=== PATIENT | female | born 1980 | race Caucasian/White ===

== ENCOUNTER 2017-06-03 18:44 | Inpatient (IN) | payer OTHER ==
[~2017-06-03] VITALS: Ht 152.4 cm; Wt 82.1 kg
--- NOTE | ~2017-06-03 | EKG ---
[place] [address] [facility] [place] [address] ELECTROCARDIOGRAM REPORT Name: ARTLARISSA Room #: 422-P ADM IN M.R.#: [id number] Admission: 06/03/17 Attend Phys: Ramon Gallegos MD Discharge: Date of : 78 Report #: [id number] THIS REPORT FOR: //name// [facility] ED Test Date: 2017-06-03 Test Time: 18:47:25 Pat Name: ALINE CORDOVA Department: Patient ID: SJOMO- Room: Gender: F Manager Fine: [facility] : 1980 Requested By: Jeanne Haywood Order Number: [id number] MD: Andrew Rivero Measurements Intervals [place] Rate: 109 P: 40 W[place]: 153 QRS: 5 QRSD: 87 T: 18 QT: 386 QTc: 520 Interpretive Statements Sinus tachycardia Borderline T abnormalities, anterior leads Prolonged QT interval Compared to ECG 04/23/2017 12:19:37 T-wave abnormality now present septal Q waves no longer present Electronically Signed On 06-04-2017 12:17:30 CDT by Andrew Rivero [email or web address] <ELECTRONICALLY SIGNED> By: Andrew Rivero MD, [facility] 04/1216 46 46 Andrew Rivero MD, [facility] /EPI
[2017-06-03 19:15] LABS: HEMATOCRIT 43.1 % (37.0-47.0); HEMOGLOBIN 14.3 gm/dL (12.0-15.0); MCH 29.2 pg (26.0-34.0); MCHC 33.3 g/dL (28.0-37.0); MCV 87.9 fL (80.0-100.0); PLATELET COUNT 290 thou/uL (150-400); RBC 4.91 mil/uL (4.20-5.00); RDW 12.9 % (10.5-14.5); WBC 26.2 thou/uL (4.0-11.0)
[2017-06-03 19:19] LABS: ANION GAP 8 mmol/L (7-16); BUN 15 mg/dL (7-18); CALCIUM 9.3 mg/dL (8.5-10.1); CHLORIDE 99 mmol/L (98-107); CO2 29 mmol/L (21-32); CREATININE 0.8 mg/dL (0.6-1.0); GLUCOSE 98 mg/dL (74-106); POTASSIUM 3.3 mmol/L (3.5-5.1); SODIUM 136 mmol/L (136-145)
[2017-06-03 19:28] LABS: TROPONIN-I < 0.04 ng/mL (<0.06)
[2017-06-03 19:45] LABS: ABSOLUTE NEUTROPHILS 24.4 thou/uL (1.4-8.2)
[2017-06-03 20:48] LABS: URINE BILIRUBIN NEGATIVE (Negative); URINE BLOOD NEGATIVE (Negative); URINE CLARITY CLEAR; URINE COLOR YELLOW; URINE GLUCOSE-RANDOM* NEGATIVE (Negative); URINE KETONES 2+ (Negative); URINE LEUKOCYTES NEGATIVE (Negative); URINE NITRITE NEGATIVE (Negative); URINE PROTEIN (DIPSTICK) TRACE (Negative); URINE UROBILINOGEN 0.2 E.U./dl (0.2-1.0)
[2017-06-03 21:00] LABS: AMP/METHAMP POSITIVE (Negative); BARBITURATES Negative (Negative); BENZODIAZEPINES Negative (Negative); COCAINE Negative (Negative); METHADONE Negative (Negative); OPIATES Negative (Negative); PCP Negative (Negative)
[2017-06-03 21:02] VITALS: BP 122/73
[2017-06-03 21:05] LABS: DIRECT BILIRUBIN 0.2 mg/dL (<0.1-0.3); TOTAL BILIRUBIN 1.1 mg/dL (<0.1-1.0); TOTAL PROTEIN 7.9 g/dL (6.4-8.2)
[2017-06-03 22:43] VITALS: BP 118/60
[2017-06-04 00:02] VITALS: BP 119/64
[2017-06-04 03:23] VITALS: BP 112/61
[2017-06-04 03:33] LABS: HEMATOCRIT 43.2 % (37.0-47.0); HEMOGLOBIN 14.4 gm/dL (12.0-15.0); MCH 29.6 pg (26.0-34.0); MCHC 33.4 g/dL (28.0-37.0); MCV 88.5 fL (80.0-100.0); RBC 4.88 mil/uL (4.20-5.00); RDW 12.9 % (10.5-14.5); WBC 27.5 thou/uL (4.0-11.0)
[2017-06-04 03:44] LABS: CALCIUM 9.3 mg/dL (8.5-10.1); CREATININE 0.9 mg/dL (0.6-1.0); POTASSIUM 4.1 mmol/L (3.5-5.1)
[2017-06-04 07:38] VITALS: BP 112/55
[2017-06-04 19:40] VITALS: BP 113/61
[2017-06-05 03:00] VITALS: BP 109/61
[2017-06-05 05:26] LABS: MCH 29.5 pg (26.0-34.0); MCHC 33.4 g/dL (28.0-37.0); MCV 88.3 fL (80.0-100.0); RBC 4.19 mil/uL (4.20-5.00); WBC 13.6 thou/uL (4.0-11.0)
[2017-06-05 05:28] LABS: HEMOGLOBIN 12.4 gm/dL (12.0-15.0)
[2017-06-05 05:40] LABS: CREATININE 0.8 mg/dL (0.6-1.0); POTASSIUM 3.6 mmol/L (3.5-5.1)
[2017-06-05 07:10] VITALS: BP 105/54
[2017-06-05 15:40] VITALS: BP 123/59
[2017-06-05 19:26] VITALS: BP 120/72
[2017-06-06 04:25] VITALS: BP 104/59
[2017-06-06 05:42] LABS: HEMATOCRIT 35.3 % (37.0-47.0); HEMOGLOBIN 11.9 gm/dL (12.0-15.0); MCH 29.9 pg (26.0-34.0); MCHC 33.5 g/dL (28.0-37.0); RBC 3.97 mil/uL (4.20-5.00); RDW 12.8 % (10.5-14.5)
[2017-06-06 05:50] LABS: CALCIUM 9.1 mg/dL (8.5-10.1); CREATININE 0.7 mg/dL (0.6-1.0); POTASSIUM 3.6 mmol/L (3.5-5.1)
[2017-06-06 07:15] VITALS: BP 97/55
[2017-06-06] MEDS ORDERED: AZITHROMYCIN 2250 MG PO (12:41)
[2017-06-06] MEDS ORDERED: BENZONATATE100 MG PO (12:42)
[2017-06-06] MEDS ORDERED: MUCINEX600 MG PO (12:42)
[2017-06-06] MEDS ORDERED: CEFDINIR300 MG PO (12:42)
[2017-06-06] MEDS ORDERED: VENTOLIN HFA 1818 GM INH (12:42)
[2017-06-06 13:22] VITALS: BP 97/55
== END 2017-06-06 14:20 | disposition home or self-care (01) | DRG 871 ==
LOC: ER 18:44 → 4E 20:45 → EROBS 20:45 → 4E 22:13
PROVIDERS: Emergency Medicine; Hospitalist; Nurse Practitioner Acute Care
DX: A41.9 Sepsis, unspecified organism (principal); J18.9 Pneumonia, unspecified organism; I10 Essential (primary) hypertension; E66.9 Obesity, unspecified; F17.210 Nicotine dependence, cigarettes, uncomplicated; E87.6 Hypokalemia; F19.10 Other psychoactive substance abuse, uncomplicated; F15.90 Other stimulant use, unspecified, uncomplicated; F12.90 Cannabis use, unspecified, uncomplicated; Z68.35 Body mass index [BMI] 35.0-35.9, adult; Z71.6 Tobacco abuse counseling
CPT/HCPCS: 10183